=== PATIENT | male | born 1980 | race Caucasian/White ===

== ENCOUNTER 2020-07-24 17:45 | Emergency (ER) | payer OTHER, SELFPAY ==
[2020-07-24 17:46] VITALS: BP 134/77; PULSE 75; RESP 16; TEMP 35.6; O2SAT 98; BMI 26.4
[2020-07-24 17:48] VITALS: BP 134/77; PULSE 74; RESP 16; TEMP 35.6; O2SAT 97
--- NOTE | 2020-07-24 18:04 | CT_ITS ---
STUDY: CT BRAIN WITHOUT CONTRAST REASON FOR EXAM: Male, 39 years old. Injury RADIATION DOSAGE (If Supplied By Facility): DLP = ( 880.47 ) mGycm TECHNIQUE: Transaxial CT imaging of the brain was performed without administration of intravenous contrast material. Individualized dose optimization techniques were used for this CT. COMPARISON: None. FINDINGS: There is no acute bleed or infarct. There are normal white matter tracts. The ventricles are normal in configuration. There is no hydrocephalus. The visualized paranasal sinuses are clear. The mastoid air cells are well aerated. There is no skull fracture. There is right superior frontal scalp laceration and hematoma. CT/Brain/Head without Contrast IMPRESSION: No acute intracranial abnormality. Right superior frontal scalp laceration and hematoma. Electronically Signed: Kenton Hanson MD at 18:39 EST Tel , Service support ,
[2020-07-24] MEDS: Lidocaine/Epi/Tetracaine 50 ML 1 APPLIC TOPICAL (18:13)
[2020-07-24] MEDS: Diphth,Pertuss(Acell),Tet Vac 0.5 ML Vial IM (18:17)
[2020-07-24] MEDS: Lidocaine 1% (20 ml mdv) 20 ML Vial INFILT (18:18)
--- NOTE | 2020-07-24 18:32 | ED.VISSUMM ---
- ER Visit Summary Date of Service: 07/24/20 Chief Complaint: Head injury History of Present Illness: The patient is a 39 M presenting after head injury. 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 It did not land on him. He had no loss of consciousness. He has had nausea with no vomiting. He has a laceration to the top of his head. Last tetanus is unknown. He is not on anticoagulants. He is self-employed. Physical Examination: Vitals are stable. Patient is afebrile. Alert no acute distress. HEENT exam 5 cm superior scalp laceration Neck is no midline tenderness Lungs are clear and equal bilaterally. Heart is regular rate and rhythm. Extremities are unremarkable. Skin is warm and dry. No focal neurologic deficit. Remainder of exam is unremarkable. Emergency Department Course and Treatment: Patient was given tetanus IM. CT head was obtained and shows no acute intracranial abnormality. Right superior frontal scalp laceration and hematoma. Wound was irrigated with saline. LET was applied. Anesthetized with local lidocaine. 4 toya were placed. Patient tolerated this well. Advised wound care instructions. Disposition: Discharge home Impression: Closed head injury, scalp laceration, laceration repair This note was generated with [employer] dictation software. It may contain incorrect words, spelling, and punctuation that were not noted in review of the chart prior to signing ED Disposition - Plan for ED Patient: Instructions: ED Laceration: All Closures Referrals: Care Physician,No Primary [Primary Care Provider] -
--- NOTE | 2020-07-24 18:57 | ED.DEP ---
ED Disposition - Plan for ED Patient: Instructions: ED Laceration: All Closures Referrals: Care Physician,No Primary [Primary Care Provider] -
[2020-07-24 19:17] VITALS: BP 130/74; PULSE 70; RESP 17; TEMP 36.4; O2SAT 97
== END 2020-07-24 19:18 | disposition home or self-care (01) ==
LOC: ED 18:16
PROVIDERS: Emergency Provider Emergency Medicine
DX: S01.01XA Laceration without foreign body of scalp, initial encounter (principal); Z23 Encounter for immunization; W26.8XXA Contact with other sharp object(s), not elsewhere classified, initial encounter; Y93.89 Activity, other specified; Y92.79 Other farm location as the place of occurrence of the external cause; Y99.8 Other external cause status
CPT/HCPCS: 12002; 70450; 90471; 90715; 99283

== ENCOUNTER 2020-09-18 06:51 | Outpatient (RCR) | payer OTHER, SELFPAY | END 2020-10-28 23:59 | LOC: IMMUN 06:51 | PROVIDERS: Referring Provider Family Medicine; Visit Provider Family Medicine | DX: Z23 Encounter for immunization (principal) | CPT/HCPCS: 0001A; 0002A; 91300 ==